=== PATIENT | female | born 1950 | race African-American/Black ===

== ENCOUNTER 2020-08-14 17:57 | Emergency (ER) | payer BC, MEDICARE ==
[~2020-08-14] VITALS: Ht 162.6 cm; Wt 72.7 kg
[~2020-08-14 17:57] MED LIST: ALPR0.254 PO; AMLO-186; ATOR40TA59; CYCL10TA2; DICL75TA; IBUP800T19 PO; LIDO700A21 TD
[2020-08-14] MEDS ORDERED: predniSONE 10 MG TABLET PO ONE (19:30)
[2020-08-14] MEDS ORDERED: ORPHENADRINE CITRATE 60 MG/2 ML VIAL. IM ONE (19:30)
[2020-08-14] MEDS ORDERED: KETOROLAC 30 MG/ML VIAL. IM ONE (19:30)
[2020-08-14] MEDS ORDERED: PRED20TA PO (20:17)
[2020-08-14] MEDS ORDERED: ORPH100T PO (20:17)
--- NOTE | 2020-08-14 20:18 | ED.ADGEN ---
Past Medical History Past Medical History: High Cholesterol, Other Additional Past Medical Histor: CHRONIC BACK PAIN Past Surgical History: , Hysterectomy, Other Additional Past Surgical Histo: NECK Smoking Status: Light Tobacco Smoker Alcohol Use: Rarely Drug Use: None General Adult EDM: Chief Complaint: BACK PAIN - NO INJURY HPI: HPI: Patient is a 69 year old AA female who presents emergency department with complaints of an acute flare of her chronic low back pain. Patient states that she has been having pain in her low back that sometimes radiates to her right thigh for the last 2 weeks. She denies any saddle anesthesia, or loss of bowel/bladder control. Patient denies any dysuria, hematuria, increased urinary frequency, abdominal pain, nausea, vomiting, diarrhea, cough, shortness of air, numbness, tingling, or weakness. She currently rates pain a 10 out of 10 on the pain scale, she denies any alleviating factors. She reports that she usually gets steroid injections and uses lidocaine patches but she has not had a steroid injection since the beginning of the year and the lidocaine patches are not helping at this time. She denies any recent falls or trauma. Review of Systems: Review of Systems: Complete ROS is negative unless otherwise noted in HPI. Current Medications: Current Medications Medications (Trade) Dose Ordered Sig/Mario Start Time Stop Time Status Last Admin Dose Admin Ketorolac Tromethamine (Toradol 30mg Vial) 30 mg 1X ONCE 08/14/20 19:30 08/14/20 19:31 DC 08/14/20 20:08 30 MG Orphenadrine Citrate (Norflex) 60 mg 1X ONCE 08/14/20 19:30 08/14/20 19:31 DC 08/14/20 20:08 60 MG Prednisone (Prednisone) 50 mg 1X ONCE 08/14/20 19:30 08/14/20 19:31 DC 08/14/20 20:09 50 MG Allergies: Allergies: Allergies Coded Allergies Type Severity Reaction Last Updated Verified No Known Drug Allergies 06/08/17 No Physical Exam: PE: See Above Constitutional: Well developed, well nourished, no acute distress, non-toxic appearance. [] HENT: Normocephalic, atraumatic, bilateral external ears normal, nose normal. [] Eyes: PERRLA, EOMI, conjunctiva normal, no discharge. [] Neck: Normal range of motion, no stridor. [] Cardiovascular:Heart rate regular rhythm Lungs & Thorax: Respirations even and unlabored, no retractions, no respiratory distress Back: Diffuse lumbar tenderness to palpation, no bony tenderness or deformity, increased pain with right straight leg lift Skin: Warm, dry, no erythema, no rash. [] Extremities: No cyanosis, ROM intact, no edema. [] Neurologic: Alert and oriented X 3, normal motor, normal sensation, ambulates with a limp on the right. No focal deficits noted. [] Psychologic: Affect normal, judgement normal, mood normal. [] Current Patient Data: Vital Signs: Vital Signs Date Time Temp Pulse Resp B/P (MAP) Pulse Ox O2 Delivery O2 Flow Rate FiO2 08/14/20 19:00 97.9 52 18 154/68 (96) 98 Room Air 97.9 EKG: EKG: [] Heart Score: C/O Chest Pain: No Risk Scores: Score 0 - 3: 2.5% MACE over next 6 weeks - Discharge Home Score 4 - 6: 20.3% MACE over next 6 weeks - Admit for Clinical Observation Score 7 - 10: 72.7% MACE over next 6 weeks - Early Invasive Strategies Radiology/Procedures: Radiology/Procedures: [] Course & Med Decision Making: Course & Med Decision Making Pertinent Labs and Imaging studies reviewed. (See chart for details) 69-year-old female presents emergency department with complaints of acute on chronic back pain. She was given 30 mg of IM Toradol, 60 mg of IM orphenadrine, and 50 mg of p.o. prednisone. Patient reported reduced pain after these medications. Prescriptions written for a prednisone taper, and Norflex. Patient encouraged to follow-up with her primary care doctor next week return to the ER if symptoms worsen or fever develops. Patient verbalized an understanding of home care, medications, follow-up, and return to ED instructions and was in agreement with the plan of care. [] Dragon Disclaimer: Dragon Disclaimer: This electronic medical record was generated, in whole or in part, using a voice recognition dictation system. Departure Departure Impression: Primary Impression: Low back pain with right-sided sciatica Disposition: HOME / SELF CARE / HOMELESS Condition: STABLE Referrals: KASIA RG MD (PCP) Patient Instructions: Back Pain, Adult, [id number], Sciatica, [id number] Additional Instructions: Fill the prescription(s) and use as directed. Apply heat or ice for to sore areas as needed for comfort. Activity as tolerated. Follow up with your primary care doctor this week if symptoms persist, return to the ER if symptoms worsen or you develop a fever. Scripts Orphenadrine Citrate (ORPHENADRINE CITRATE) 100 Mg Tablet.er 1 TAB PO BID PRN for PAIN for 10 Days, #20 TAB 0 Refills Prov: ZURDO DEL CID APRN 08/14/20 Prednisone (PREDNISONE) 20 Mg Tablet 1 TAB PO UD for 12 Days, #15 TAB 2 tabs by mouth days 1,2,3 then 1.5 tabs by mouth days 4,5,6 then 1 tab by mouth days 7,8,9 then 0.5 tab by mouth day 10,11,12 Prov: ZURDO DEL CID APRN 08/14/20 Problem Qualifiers Primary Impression: Low back pain with right-sided sciatica Chronicity: chronic Back pain laterality: right Qualified Codes: M54.41 - Lumbago with sciatica, right side; G89.29 - Other chronic pain ZRUDO DEL CID APRN August 14, 2020 20:18
[2020-08-14 20:40] VITALS: BP 188/77
== END 2020-08-14 20:40 | disposition home or self-care (01) ==
LOC: ER 17:57
DX: M54.41 Lumbago with sciatica, right side (principal); G89.29 Other chronic pain; E78.00 Pure hypercholesterolemia, unspecified; Z72.0 Tobacco use; Z90.710 Acquired absence of both cervix and uterus
CPT/HCPCS: 96372; 99284; J1885; J2360; J7512